=== PATIENT | male | born 1995 | race Two or more races ===

== ENCOUNTER 2021-01-01 11:38 | Emergency (ER) | payer MEDICAID, SELFPAY ==
--- NOTE | ~2021-01-01 | US_ITS ---
EXAMINATION: US SCROTUM US SCROTUM DOPPLER CLINICAL INFORMATION: Right testicular pain and swelling. COMPARISON: None TECHNIQUE: A sonogram of the scrotum was performed assessing taylor-scale appearance and color Doppler flow. Spectral Doppler analysis of the arterial and venous flow were performed in the testes bilaterally. FINDINGS: RIGHT: Right testicle measures 4.5 x 2.5 x 3.2 cm. No focal testicular parenchymal lesions are visualized. Spectral Doppler analysis of the arterial and venous flow is normal in the right testis. Right epididymal head is normal in size. No right hydrocele or varicocele is seen. Right epididymal Doppler flow is increased within the tail which appears slightly heterogeneous. LEFT: Left testicle measures 4.4 x 2.5 x 3 cm. No focal testicular parenchymal lesions are visualized. Spectral Doppler analysis of the arterial and venous flow is normal in the left testis. Left epididymal head is normal in size. No left hydrocele or varicocele is seen. Left epididymal Doppler flow is normal. US/US scrotum IMPRESSION: Mild heterogeneity of the right epididymal tail with increased Doppler detectable vascular flow. Findings could represent focal epididymitis. Otherwise unremarkable examination.
--- NOTE | ~2021-01-01 | US_ITS ---
EXAMINATION: US SCROTUM US SCROTUM DOPPLER CLINICAL INFORMATION: Right testicular pain and swelling. COMPARISON: None TECHNIQUE: A sonogram of the scrotum was performed assessing taylor-scale appearance and color Doppler flow. Spectral Doppler analysis of the arterial and venous flow were performed in the testes bilaterally. FINDINGS: RIGHT: Right testicle measures 4.5 x 2.5 x 3.2 cm. No focal testicular parenchymal lesions are visualized. Spectral Doppler analysis of the arterial and venous flow is normal in the right testis. Right epididymal head is normal in size. No right hydrocele or varicocele is seen. Right epididymal Doppler flow is increased within the tail which appears slightly heterogeneous. LEFT: Left testicle measures 4.4 x 2.5 x 3 cm. No focal testicular parenchymal lesions are visualized. Spectral Doppler analysis of the arterial and venous flow is normal in the left testis. Left epididymal head is normal in size. No left hydrocele or varicocele is seen. Left epididymal Doppler flow is normal. US/US scrotum doppler IMPRESSION: Mild heterogeneity of the right epididymal tail with increased Doppler detectable vascular flow. Findings could represent focal epididymitis. Otherwise unremarkable examination.
[2021-01-01 12:47] VITALS: BP 141/87; PULSE 69; RESP 18; TEMP 36.9; O2SAT 99; BMI 25.6
--- NOTE | 2021-01-01 12:57 | ED.MALEGU ---
HPI - Male Genitourinary General Chief complaint: Urogenital-Male Stated complaint: swollen testicle Time Seen by Provider: 01/01/21 12:57 Source: patient Mode of arrival: ambulatory Limitations: no limitations History of Present Illness HPI Narrative: right testicle pain starting at 9am. Patient states it is swollen. Slightly red. Complaint: testicle pain Onset (ago): hour(s) Duration: constant Radiation: right testicle Severity: mild Associated symptoms: Reports denies other symptoms Related Data Previous Rx's Medication Instructions Recorded doxycycline hyclate 100 mg capsule 100 mg PO BID #20 cap 01/01/21 Allergies Allergy/AdvReac Type Severity Reaction Status Date / Time No Known Allergies Allergy Verified 01/01/21 13:03 Review of Systems Constitutional: Constitutional: Reports no additional constitutional complaints Eyes: Eyes: Reports no additional eye complaints ENT: Denies dizziness Cardiovascular: Cardiovascular: Reports no additional cardiovascular complaints Respiratory: Respiratory: Reports as per HPI Gastrointestinal: Gastrointestinal: Reports no additional gastrointestinal complaints Musculoskeletal: Musculoskeletal: Reports no additional musculoskeletal complaints Integumentary/Breasts: Skin/Breast: Denies rash Neurologic: Reports system reviewed and no additional complaints, except as documented, Denies dizziness and Denies Sensory deficit (Neuro) Psychiatric: Psychiatric: Denies anxiety [facility] Past Medical History Medical History No known health problems Social History Social History Advance Directives: No Physical Exam Vital Signs: Vital Signs: Last Vital Signs Temp 98.5 F 01/01/21 12:47 Pulse 69 01/01/21 12:47 Resp 18 01/01/21 12:47 BP 141/87 H 01/01/21 12:47 Pulse Ox 99 01/01/21 12:47 Body Mass Index 25.6 Const: General: healthy appearing Nutritional Appearance: average body habitus Orientation/consciousness: oriented to person and patient oriented x3 Limitations: no limitations HENMT: Head: Yes normal to inspection Ears: external ears normal General nose exam: Normal external nose present Mouth: Normal oral and palatal mucosa present and oropharynx normal Throat: Yes posterior oropharynx normal Eyes: General: appearance normal, both eyes and all related structures Neck: Other: supple Neck: Yes normal visual inspection Chest: Chest palpation & inspection: normal inspection of the chest Resp: Auscultation: clear to auscultation bilaterally Cardio: Jugular venous distension: no JVD Rate: regular rate Rhythm: regular rhythm Heart sounds: S1 normal heart sound present and S2 normal heart sound present GI: Inspection: Yes normal to inspection Palpation (GI): Soft to palpation, nontender and No hepatosplenomegaly present Auscultation: normal bowel sounds : Other: normal penis, right testicle with normal lie, no cremasteric reflex, no erythema, epidydimus nontender. No penile discharge Skin: General skin exam: no rashes or lesions noted Neuro: General: oriented to person and patient oriented x3 Cranial nerves: Yes CN's II-XII intact bilaterally Motor exam (neuro): 5/5 motor strength present throughout Sensory Exam: No Sensory deficit (Neuro) Extrem: General: Yes normal to inspection Psych: Appearance: grossly normal Course Reevaluation(s) Reevaluation #1: patient with orchitis and positive chlamydia. Will treat with rocephine and doxy and dc home Time: 15:26 [facility] - Male Genitourinary Lab Data Labs: Lab Results 01/01/21 Range/Units 13:21 Chlam trachomat DNA PCR DETECTED A (Not Detect.) N.gonorrhoeae DNA (PCR) NOT DETECTED (Not Detect.) Imaging Data testicular ultrasound: Radiologist's impression: IMPRESSION: Mild heterogeneity of the right epididymal tail with increased Doppler detectable vascular flow. Findings could represent focal epididymitis. Discharge Plan Discharge Clinical Impression: Acute orchitis, Chlamydia, Sexually transmitted Chlamydia trachomatis infection Patient Disposition: Home, Self-Care Instructions: Orchitis (ED), Scrotal Pain (ED) Prescriptions: New doxycycline hyclate 100 mg capsule 100 mg PO BID Qty: 20 RF: 0 Referrals: Physician,None [Primary Care Provider] - 1 week
[2021-01-01 15:09] LABS: CT PCR DETECTED (Not Detect.); NG PCR NOT DETECTED (Not Detect.)
[2021-01-01] MEDS: cefTRIAXone sodium 500 MG VIAL IM (15:56)
[2021-01-01] MEDS: Lidocaine HCl 1 % 20 ML VIAL INFILTRATI (15:58)
== END 2021-01-01 15:59 | disposition home or self-care (01) ==
PROVIDERS: Emergency Provider Emergency Medicine
DX: A56.19 Other chlamydial genitourinary infection (principal)
CPT/HCPCS: 76870; 87491; 87591; 93975; 96372; 99284; J0696

== ENCOUNTER 2021-01-11 10:58 | Emergency (ER) | payer MEDICAID, SELFPAY ==
--- NOTE | ~2021-01-11 | XR_ITS ---
EXAMINATION: XR ELBOW, LEFT CLINICAL INFORMATION: Fall COMPARISON: None TECHNIQUE: AP, lateral, and oblique views of the left elbow. FINDINGS: No fracture or dislocation. Tiny joint effusion suspected. No significant degenerative changes. No radiopaque foreign body. No focal soft tissue swelling. XR/XR elbow LT 2V IMPRESSION: Tiny joint effusion suspected. No fracture.
[2021-01-11 11:39] VITALS: BP 120/73; PULSE 64; RESP 16; TEMP 36.5; O2SAT 98; BMI 25.6
--- NOTE | 2021-01-11 12:57 | ED.EXTPRO ---
HPI - Extremity Problem General Chief complaint: Extremity Injury, Upper Stated complaint: QUEST DISLOCATION L ARM NUMBNESS R HAND FALL Time Seen by Provider: 01/11/21 12:03 Source: patient Mode of arrival: ambulatory History of Present Illness HPI Narrative: 25-year-old male with no significant past medical history presenting to the ED complaining of left elbow pain and swelling with decreased ROM s/p falling on elbow while playing basketball at 2 a.m. denies head trauma or LOC. Denies numbness, tingling, weakness, injury to other area MD Complaint: extremity pain, extremity swelling and joint paint Related Data Previous Rx's Medication Instructions Recorded doxycycline hyclate 100 mg capsule 100 mg PO BID #20 cap 01/01/21 Allergies Allergy/AdvReac Type Severity Reaction Status Date / Time No Known Allergies Allergy Verified 01/01/21 13:03 Review of Systems Review of Systems: Constitutional: No Fever, No Chills ENT/Mouth: No Ear Pain, No Nasal Congestion, No sore throat,No Swallowing Difficulty Cardiovascular: No Chest Pain, No SOB Respiratory: No Cough, No Sputum, No Wheezing Gastrointestinal: No Nausea, No Vomiting, No Diarrhea, No Constipation, No Abdominal pain Genitourinary:, No Dysuria, No Urinary Frequency, No Hematuria Musculoskeletal: + joint pain, No Myalgias, + Joint Swelling Skin: No Skin Lesions, No rash Neuro: No Weakness, No Numbness, No Paresthesias Yes all other systems are reviewed and are negative Neurologic: Denies Sensory deficit (Neuro) [facility] Past Medical History Attestation statement: The following information was validated with the patient. Medical History No known health problems Social History Social History Advance Directives: No Advance Directives Information Provided: No Physical Exam Vital Signs: Vital Signs: Last Vital Signs Temp 97.7 F 01/11/21 11:39 Pulse 64 01/11/21 11:39 Resp 16 01/11/21 11:39 BP 120/73 01/11/21 11:39 Pulse Ox 98 01/11/21 11:39 Body Mass Index 25.6 Const: General: cooperative, healthy appearing and no acute distress Orientation/consciousness: patient oriented x3 Limitations: no limitations HENMT: Head: Yes normal to inspection Ears: hearing grossly normal bilaterally General nose exam: Normal external nose present Face and sinus: Yes normal facial exam Eyes: General: appearance normal, both eyes and all related structures EOM: EOMs intact bilaterally Neck: Neck: Yes normal visual inspection and Yes no meningeal signs Resp: Effort & Inspection: normal respiratory effort and no respiratory distress Cardio: Rate: regular rate Peripheral pulses: radial pulses present Skin: Rashes: no rashes Wounds: no wounds Neuro: General: patient oriented x3 and no meningeal signs Gait exam (Neuro): Normal gait present Sensory Exam: No Sensory deficit (Neuro) Extrem: Other: Left elbow with notable swelling. Tender to palpation. Decreased extension secondary to pain. Neurovascular intact distally. No erythema/fluctuance or induration. No streaking. Left finger/hand/wrist nontender with full range of motion intact. Left shoulder nontender Course Course Course Narrative: XR elbow LT 2V IMPRESSION: Tiny joint effusion suspected. No fracture. >> patient placed in sling is to follow-up with orthopedics MDM - Extremity (Nontraumatic) MDM Narrative Medical decision making narrative: 25-year-old male with no significant past medical history presenting to the ED complaining of left elbow pain and swelling with decreased ROM s/p falling on elbow while playing basketball at 2 a.m. denies head trauma or LOC. on exam VSS, NAD, physical exam as above. Concern for fracture. Plan: X-rays Discharge Plan Discharge Clinical Impression: Effusion of left elbow Injury of elbow, left Qualifiers: Encounter type: initial encounter Qualified Code(s): S59.902A - Unspecified injury of left elbow, initial encounter Patient Disposition: Home, Self-Care Instructions: Swollen Joint (ED) Additional Instructions: Wear sling until you see the fire prevention specialist. Call the Wednesday for follow-up Your x-rays showed a joint effusion, fluid in the joint however no fracture/break Ice and elevate your arm, take ibuprofen and Tylenol Avoid heavy lifting/training until you see the specialist Prescriptions: No Action doxycycline hyclate 100 mg capsule 100 mg PO BID Qty: 20 RF: 0 Referrals: Darlin Estes PA-C [Physician Fire Prevention Captain] - 3 days Stand Alone Forms: Work/School Release Interventions: ED Discharge Assessment Last Done: 01/11/21 13:14 Discharge Date/Time: 01/11/21 13:15
== END 2021-01-11 13:15 | disposition home or self-care (01) ==
PROVIDERS: Emergency Provider Emergency Medicine; PCP Internal Medicine
DX: S59.902A Unspecified injury of left elbow, initial encounter (principal); M25.422 Effusion, left elbow; W19.XXXA Unspecified fall, initial encounter; Y93.67 Activity, basketball; Y92.9 Unspecified place or not applicable; Y99.9 Unspecified external cause status
CPT/HCPCS: 73070; 99283